=== PATIENT | female | born 1990 ===

== ENCOUNTER → 2018-06-27 | Outpatient (REF) ==
[2018-06-27 17:41] LABS: THYROXINE (T4)-TOTAL 6.3 ug/dL (5.5-11.0)
[2018-06-27 17:55] LABS: THYROID STIMULATING HORMONE 1.25 uIU/mL (0.465-4.680)
== END ==
LOC: ZLAB.WCH 16:44
PROVIDERS: Family Medicine
DX: Z01.89 Encounter for other specified special examinations (principal)